=== PATIENT | female | born 1965 | race Caucasian/White ===

== ENCOUNTER 2017-08-21 21:34 | Emergency (ER) | payer OTHER ==
[2017-08-22] MEDS: HYDROCODONE/APAP (10/325) TAB PO (02:06)
[2017-08-22] MEDS: KETOROLAC 60 MG INJ IM (02:07)
== END 2017-08-22 02:27 | disposition home or self-care (01) ==
LOC: FTE 21:34
DX: M54.5 Low back pain (principal); I10 Essential (primary) hypertension; E11.9 Type 2 diabetes mellitus without complications; J45.909 Unspecified asthma, uncomplicated; Z79.84 Long term (current) use of oral hypoglycemic drugs
CPT/HCPCS: 96372; 99284-25